=== PATIENT | male | born 1930 | race African-American/Black ===

== ENCOUNTER 2017-06-20 14:25 | Emergency (ER) | payer OTHER ==
[~2017-06-20] VITALS: Ht 175.3 cm; Wt 90.7 kg
[2017-06-20] MEDS ORDERED: SODIUM BICARBONATE 8.4% INJ 50ML SYRINGE ONE (14:32)
[2017-06-20] MEDS ORDERED: EPINEPHrine HCL 1 MG/10 ML SYRG ONE (14:39)
== END 2017-06-20 23:34 | disposition expired ==
LOC: ER 14:25 → MERGE 14:25 → EDBD 14:25 → ER 23:34
DX: I46.9 Cardiac arrest, cause unspecified (principal); J44.9 Chronic obstructive pulmonary disease, unspecified; F17.210 Nicotine dependence, cigarettes, uncomplicated; Z85.028 Personal history of other malignant neoplasm of stomach
CPT/HCPCS: 31500; 92950